=== PATIENT | female | born 1985 | race American Indian/Alaskan Native ===

== ENCOUNTER 2017-01-07 16:06 | Outpatient (CLI) | payer OTHER ==
--- NOTE | 2017-01-08 09:34 | XRay Report ---
CHEST TWO VIEWS: 01/07/17 16:06:00 CLINICAL: Cough. COMPARISON: None FINDINGS: Normal heart and pulmonary vasculature. The lungs are normally expanded and clear.The bones and soft tissues are unremarkable. IMPRESSION: Normal chest.
== END 2017-01-07 16:07 | disposition home or self-care (01) ==
LOC: XRAY 16:06
PROVIDERS: ATTEND Internal Medicine
DX: R05 Cough (principal)
CPT/HCPCS: 71020

== ENCOUNTER 2017-10-05 23:55 | Emergency (ER) | payer OTHER ==
[2017-10-06 00:45] VITALS: BP 115/59
[2017-10-06] MEDS ORDERED: TYLENOL PO ONE (00:49)
[2017-10-06] MEDS ORDERED: TYLENOL ONE (00:50)
[2017-10-06] MEDS ORDERED: MOTRIN PO ONE (08:13)
[2017-10-06] MEDS ORDERED: MOTRIN ONE (08:15)
--- NOTE | 2017-10-06 10:51 | Emergency Department Report ---
ED Fever HPI - General Chief Complaint: Fever Stated Complaint: FLU-LIKE Source: patient - History of Present Illness Initial Comments: This is a healthy 32-year-old female who presents with flulike illness. She has subjective fever. She has mild nonproductive cough, she also has nausea. She has body aches. Mild headache. She lives with both parents. No known sick contacts. She does not smoke tobacco. 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 Fever Severity/Quality: subjective Associated Symptoms: cough, muscle aches. denies: chest pain ED Review of Systems ROS: Stated complaint: FLU-LIKE Other details as noted in HPI Comment: All other systems reviewed and negative Constitutional: chills, fever, malaise ENT: denies: ear pain, throat pain Respiratory: cough Cardiovascular: denies: chest pain ED Past Medical Hx - Past Medical History Previous Medical History?: No - Surgical History Past Surgical History?: No - Social History Smoking Status: Never Smoker Substance Use Type: None ED Physical Exam - General Limitations: No Limitations General appearance: alert, in no apparent distress - Head Head exam: Present: atraumatic, normocephalic - Eye Eye exam: Present: normal appearance - ENT ENT exam: Present: normal orophraynx, mucous membranes moist - Neck Neck exam: Present: normal inspection. Absent: meningismus - Respiratory Respiratory exam: Present: normal lung sounds bilaterally. Absent: respiratory distress, wheezes, rales, rhonchi - Cardiovascular Cardiovascular Exam: Present: regular rate, normal rhythm. Absent: systolic murmur, diastolic murmur, rubs, gallop - GI/Abdominal GI/Abdominal exam: Present: soft, normal bowel sounds. Absent: distended, tenderness, guarding, rebound - Extremities Exam Extremities exam: Present: normal inspection - Back Exam Back exam: Present: normal inspection - Neurological Exam Neurological exam: Present: alert, oriented X3 - Psychiatric Psychiatric exam: Present: normal affect, normal mood - Skin Skin exam: Present: warm, dry, intact, normal color. Absent: rash ED Course Vital Signs 10/06/17 10/06/17 10/06/17 00:38 08:00 10:30 Temperature 101.1 F H 103.0 F H 98.4 F Pulse Rate 96 H Respiratory 18 Rate Blood Pressure 115/59 O2 Sat by Pulse 98 Oximetry ED Medical Decision Making - Medical Decision Making Ms. Galvez is a healthy 32-year-old who presents with flulike illness. She did present with fever. No indication of pneumonia or pharyngitis on exam. I have highly clinical suspicion of influenza in spite negative influenza assay. I've given her influenza instructions. I recommended rest, and over-the- counter medications. Patient understands return precautions. Critical care attestation.: If time is entered above; I have spent that time in minutes in the direct care of this critically ill patient, excluding procedure time. ED Disposition Clinical Impression: Influenza Disposition: DC-01 TO HOME OR SELFCARE Is pt being admited?: No Does the pt Need Aspirin: No Condition: Good Instructions: Influenza (ED) Referrals: ANN GOMEZ MD [Primary Care Provider] - 3-5 Days Forms: Work/School Release Form(ED) Time of Disposition: 10:51
== END 2017-10-06 11:07 | disposition home or self-care (01) ==
LOC: ED 23:55
DX: J00 Acute nasopharyngitis [common cold] (principal); Z53.21 Procedure and treatment not carried out due to patient leaving prior to being seen by health care provider
CPT/HCPCS: 87400

== ENCOUNTER 2021-04-20 11:36 | Outpatient (CLI) | payer OTHER | END 2021-04-20 11:37 | disposition home or self-care (01) | LOC: XRAY 11:36 | CPT/HCPCS: 72100 ==